=== PATIENT | male | born 1965 | race Caucasian/White ===

== ENCOUNTER 2020-08-30 08:03 | Emergency (ER) | payer OTHER ==
[~2020-08-30 08:03] MED LIST: ACIPHEX20 M1 PO; ACTOS30 MG PO; ALLEGRA ALLERG180 MG PO; ALLOPURINOL100 MG PO; ASPIRIN EC81 MG PO; AUGMENTIN 875-1 EACH PO; AZITHROMYCIN250 MG PO; CARAFATE1 GM PO; CARTIA XT120 MG PO; CATAPRES0.1 MG PO; CEFDINIR300 MG PO; CIPRO500 MG PO; CRESTOR20 MG PO; DERMACINRX5000 UNIT PO; DILAUDID2 MG PO; DULERA 200 MCG8.8 GM INH; DUONEB 2.5-0.5M1 AMP INH; DUONEB 2.5-0.5M1 AMP NEB; ELIQUIS5 MG PO; ENDOCET 10-3251 EACH PO; FENOFIBRATE160 MG PO; FLOMAX0.4 MG PO; GLUCOTROL5 MG PO; HABITROL14 MG TD; HCTZ25 MG PO; HYDROCODON-ACE1 EAC4 PO; INVOKANA300 MG PO; LEVAQUIN750 MG PO; LOPID600 MG PO; METFORMIN HCL500 MG PO; METOPROLOL SUC100 MG PO; ONDANSETRON ODT4 MG PO; ONDANSETRON ODT4 MG SL; PEPCID AC20 MG PO; PERCOCET 10/321 EACH PO; PREDNISONE 20MG20 MG PO; PREDNISONE20 MG PO; PULMICORT0.5 MG/2 M NEB; QVAR REDIHALE10.6 G1 INH; SERTRALINE HCL50 MG PO; STEGLATRO15 MG PO; TAMIFLU 75MG CA75 MG PO; VENTOLIN HFA IN18 GM INH; XARELTO10 MG PO; ZOLOFT50 MG PO
== END 2020-08-30 08:10 | disposition left against medical advice (07) ==
LOC: FER 08:03
DX: R06.02 Shortness of breath (principal); Z53.8 Procedure and treatment not carried out for other reasons

== ENCOUNTER 2020-10-07 22:53 | Emergency (ER) | payer OTHER ==
[2020-10-07 23:58] LABS: BASOPHIL 0.7 % (0-2); EOSINOPHIL 2.9 % (0-5); HCT 45.4 % (42.0-52.0); LYMPHOCYTE 27.9 % (15-48); MCH 28.5 pg (25.0-31.0); MCV 86.3 fL (78.0-100.0); MPV 10.8 fL (6.0-9.5); NEUTROPHIL 59.3 % (41-80); NRBC 0; PLT 214 K/uL (150-400); RBC 5.26 M/uL (4.70-6.00); RDW 14.3 % (11.5-14.0); WBC 8.5 K/uL (4.0-10.5)
[2020-10-08 00:08] LABS: INR 1.61 (0.9-1.2); PROTHROMBIN TIME 18.2 SECONDS (11.4-13.6)
[2020-10-08 00:15] LABS: ALBUMIN 3.4 g/dL (3.4-5.0); BILIRUBIN - TOTAL 0.4 mg/dL (0.2-1.0); GLOBULIN (CALCULATION) 3.9 g/dL; POTASSIUM 4.4 mmol/L (3.5-5.1); TOTAL PROTEIN 7.3 g/dL (6.4-8.2)
[2020-10-08 01:48] LABS: BILIRUBIN NEGATIVE (NEGATIVE); BLOOD 3+ Ery/uL (NEGATIVE); CLARITY CLEAR (CLEAR); COLOR YELLOW (YELLOW); GLUCOSE (U) 3+ mg/dL (NORMAL); LEUKOCYTES NEGATIVE Leu/uL (NEGATIVE); NITRITE NEGATIVE (NEGATIVE); PROTEIN NEGATIVE (NEGATIVE); SPECIFIC GRAVITY 1.025 (1.001-1.030); UROBILINOGEN 0.2 mg/dL (0.2-1.0)
[2020-10-08 01:55] LABS: BACTERIA TRACE; URINARY RBC TNTC
== END 2020-10-08 05:00 | disposition home or self-care (01) ==
LOC: FER 22:53
PROVIDERS: Emergency Medicine
DX: J44.1 Chronic obstructive pulmonary disease with (acute) exacerbation (principal); Z99.81 Dependence on supplemental oxygen; Z95.0 Presence of cardiac pacemaker; Z87.891 Personal history of nicotine dependence
CPT/HCPCS: 36415; 36600; 71045; 80053; 81001; 82150; 82803; 83690; 84484; 85025; 85610; 85730; 93005; J2405; J2930

== ENCOUNTER 2020-11-09 12:00 | Emergency (ER) | payer OTHER ==
[2020-11-09 13:59] LABS: BASOPHIL 0.4 % (0-2); EOSINOPHIL 0.2 % (0-5); HGB 14.5 g/dl (13.2-18.0); LYMPHOCYTE 19.3 % (15-48); MCH 28.8 pg (25.0-31.0); MCHC 34.5 g/dL (32.0-36.0); MCV 83.3 fL (78.0-100.0); MONOCYTE 7.7 % (0-12); MPV 11.2 fL (6.0-9.5); NEUTROPHIL 71.1 % (41-80); NRBC 0; PLT 227 K/uL (150-400); RBC 5.04 M/uL (4.70-6.00); RDW 14.4 % (11.5-14.0); WBC 10.5 K/uL (4.0-10.5)
[2020-11-09 14:17] LABS: BUN/CREAT RATIO (CALC) 33.7 RATIO; CREATININE 0.95 mg/dL (0.67-1.17); POTASSIUM 3.8 mmol/L (3.5-5.1)
== END 2020-11-09 16:52 | disposition home or self-care (01) ==
LOC: FER 12:00
PROVIDERS: Nurse Practitioner Family
DX: R42 Dizziness and giddiness (principal); M79.89 Other specified soft tissue disorders; T38.0X5A Adverse effect of glucocorticoids and synthetic analogues, initial encounter; E11.9 Type 2 diabetes mellitus without complications; I10 Essential (primary) hypertension; I48.91 Unspecified atrial fibrillation; J44.9 Chronic obstructive pulmonary disease, unspecified; Z86.2 Personal history of diseases of the blood and blood-forming organs and certain disorders involving the immune mechanism; Z88.5 Allergy status to narcotic agent; Z88.8 Allergy status to other drugs, medicaments and biological substances; Y92.9 Unspecified place or not applicable
CPT/HCPCS: 36415; 80048; 83880; 85025; J1200

== ENCOUNTER 2021-05-27 06:17 | Emergency (ER) | payer OTHER ==
[2021-05-27 07:03] LABS: BASOPHIL 0.4 % (0-2); EOSINOPHIL 1.9 % (0-5); HCT 46.3 % (42.0-52.0); LYMPHOCYTE 20.6 % (15-48); MCH 29.3 pg (25.0-31.0); MCHC 34.6 g/dL (32.0-36.0); MCV 84.8 fL (78.0-100.0); MPV 10.7 fL (6.0-9.5); NEUTROPHIL 68.4 % (41-80); NRBC 0; PLT 229 K/uL (150-400); RBC 5.46 M/uL (4.70-6.00); WBC 8.3 K/uL (4.0-10.5)
[2021-05-27 07:14] LABS: ALBUMIN 3.8 g/dL (3.4-5.0); BILIRUBIN - TOTAL 1.1 mg/dL (0.2-1.0); BUN/CREAT RATIO (CALC) 26.1 RATIO; CREATININE 0.88 mg/dL (0.67-1.17); GLOBULIN (CALCULATION) 3.7 g/dL; POTASSIUM 3.7 mmol/L (3.5-5.1); TOTAL PROTEIN 7.5 g/dL (6.4-8.2)
[2021-05-27 08:29] LABS: BILIRUBIN 1+ mg/dL (NEGATIVE); BLOOD NEGATIVE Ery/uL (NEGATIVE); CLARITY CLEAR (CLEAR); COLOR YELLOW (YELLOW); GLUCOSE (U) 3+ mg/dL (NORMAL); LEUKOCYTES NEGATIVE Leu/uL (NEGATIVE); NITRITE NEGATIVE (NEGATIVE); PROTEIN NEGATIVE (NEGATIVE); UROBILINOGEN 0.2 mg/dL (0.2-1.0)
[2021-05-27] MEDS ORDERED: PRILOSEC20 MG PO ×2 (09:31→09:32)
== END 2021-05-27 10:01 | disposition home or self-care (01) ==
LOC: FER 06:17
PROVIDERS: Emergency Medicine
DX: K29.70 Gastritis, unspecified, without bleeding (principal); I10 Essential (primary) hypertension; E11.9 Type 2 diabetes mellitus without complications; J44.9 Chronic obstructive pulmonary disease, unspecified; Z87.891 Personal history of nicotine dependence; Z88.5 Allergy status to narcotic agent; Z88.6 Allergy status to analgesic agent; Z88.8 Allergy status to other drugs, medicaments and biological substances
CPT/HCPCS: 36415; 71045; 80053; 81003; 83690; 84478; 84484; 85025; 93005; J1170; J2405; J7030; Q9967

== ENCOUNTER 2021-06-19 14:48 | Inpatient (IN) | payer OTHER ==
[~2021-06-19] VITALS: Ht 175.3 cm; Wt 145.1 kg
[~2021-06-19 14:48] MED LIST changes: +PRILOSEC20 MG PO
[2021-06-19 15:38] LABS: BASOPHIL 0.3 % (0-2); EOSINOPHIL 0 % (0-5); HCT 48.4 % (42.0-52.0); HGB 16.3 g/dl (13.2-18.0); LYMPHOCYTE 5.4 % (15-48); MCH 28.7 pg (25.0-31.0); MCHC 33.7 g/dL (32.0-36.0); MCV 85.2 fL (78.0-100.0); MONOCYTE 5.7 % (0-12); MPV 10.5 fL (6.0-9.5); NEUTROPHIL 87.2 % (41-80); NRBC 0; PLT 249 K/uL (150-400); RBC 5.68 M/uL (4.70-6.00); RDW 14.7 % (11.5-14.0); WBC 14.6 K/uL (4.0-10.5)
[2021-06-19 16:08] LABS: ALBUMIN 4.1 g/dL (3.4-5.0); BILIRUBIN - TOTAL 0.8 mg/dL (0.2-1.0); BUN/CREAT RATIO (CALC) 39.1 RATIO; CREATININE 0.92 mg/dL (0.67-1.17); GLOBULIN (CALCULATION) 3.8 g/dL; POTASSIUM 4.2 mmol/L (3.5-5.1); TOTAL PROTEIN 7.9 g/dL (6.4-8.2)
[2021-06-19 19:45] LABS: BILIRUBIN 1+ mg/dL (NEGATIVE); BLOOD NEGATIVE Ery/uL (NEGATIVE); CLARITY CLEAR (CLEAR); COLOR YELLOW (YELLOW); GLUCOSE (U) 3+ mg/dL (NORMAL); LEUKOCYTES NEGATIVE Leu/uL (NEGATIVE); NITRITE NEGATIVE (NEGATIVE); PROTEIN NEGATIVE (NEGATIVE); SPECIFIC GRAVITY 1.025 (1.001-1.030); UROBILINOGEN 0.2 mg/dL (0.2-1.0); pH 5.5 (5.0-9.0)
[2021-06-19 19:52] LABS: BACTERIA TRACE
[2021-06-19] MEDS ORDERED: SINGULAIR10 MG PO (23:06)
[2021-06-19] MEDS ORDERED: 24HOUR ALLERGY10 MG PO (23:07)
[2021-06-19 23:08] LABS: BUN/CREAT RATIO (CALC) 39.1 RATIO; CREATININE 0.87 mg/dL (0.67-1.17)
[2021-06-19] MEDS ORDERED: DALIRESP500 MCG PO (23:08)
[2021-06-19] MEDS ORDERED: AZITHROMYCIN250 MG PO (23:08)
[2021-06-19] MEDS ORDERED: GLUCOTROL10 MG PO (23:08)
[2021-06-20 06:46] LABS: BASOPHIL 0.3 % (0-2); EOSINOPHIL 0 % (0-5); HGB 15.8 g/dl (13.2-18.0); LYMPHOCYTE 7.3 % (15-48); MCHC 33.6 g/dL (32.0-36.0); MCV 86.4 fL (78.0-100.0); MONOCYTE 6.8 % (0-12); MPV 10.3 fL (6.0-9.5); NEUTROPHIL 83.6 % (41-80); NRBC 0; PLT 217 K/uL (150-400); RBC 5.44 M/uL (4.70-6.00); RDW 14.6 % (11.5-14.0); WBC 12.6 K/uL (4.0-10.5)
[2021-06-20 07:07] LABS: ALBUMIN 3.7 g/dL (3.4-5.0); BILIRUBIN - TOTAL 0.6 mg/dL (0.2-1.0); BUN/CREAT RATIO (CALC) 34.1 RATIO; CREATININE 0.82 mg/dL (0.67-1.17); GLOBULIN (CALCULATION) 3.7 g/dL; TOTAL PROTEIN 7.4 g/dL (6.4-8.2)
--- NOTE | 2021-06-20 14:07 | NUR ---
PT. RESIDES WITH HIS SPOUSE. HE IS ON 2 L OF 02 AT NIGHT. HE ALSO TAKES DUONEBS EVERY FOUR HOURS. PT. IS DISABLED DUE TO ISSUES WITH HIS BACK. PT. NO LONGER DRINKS ALCOHOL. HE WILL D/C HOME WITH HIS SPOUSE.
[2021-06-22 06:47] LABS: BASOPHIL 0.6 % (0-2); EOSINOPHIL 2.4 % (0-5); HCT 39.2 % (42.0-52.0); HGB 13.4 g/dl (13.2-18.0); LYMPHOCYTE 23.2 % (15-48); MCH 29.3 pg (25.0-31.0); MCHC 34.2 g/dL (32.0-36.0); MCV 85.6 fL (78.0-100.0); MONOCYTE 6.4 % (0-12); MPV 10.1 fL (6.0-9.5); NEUTROPHIL 66.2 % (41-80); NRBC 0; PLT 149 K/uL (150-400); RBC 4.58 M/uL (4.70-6.00); RDW 13.8 % (11.5-14.0)
[2021-06-22 07:09] LABS: BILIRUBIN - TOTAL 0.5 mg/dL (0.2-1.0); BUN/CREAT RATIO (CALC) 20.3 RATIO; CREATININE 0.64 mg/dL (0.67-1.17); GLOBULIN (CALCULATION) 3.2 g/dL; POTASSIUM 3.3 mmol/L (3.5-5.1); TOTAL PROTEIN 6.2 g/dL (6.4-8.2)
[2021-06-22] MEDS ORDERED: DILAUDID2 MG PO (13:15)
== END 2021-06-22 15:52 | disposition home or self-care (01) | DRG 439 ==
LOC: FER 14:48 → FMS 19:32
PROVIDERS: Allergy & Immunology Allergy; Nurse Practitioner; Physician Assistant; ADMIT Hospitalist
DX: K85.90 Acute pancreatitis without necrosis or infection, unspecified (principal); Z68.42 Body mass index [BMI] 45.0-49.9, adult; Z20.822 Contact with and (suspected) exposure to COVID-19; I10 Essential (primary) hypertension; I48.0 Paroxysmal atrial fibrillation; E66.01 Morbid (severe) obesity due to excess calories; E11.9 Type 2 diabetes mellitus without complications; D45 Polycythemia vera; M10.9 Gout, unspecified; K21.9 Gastro-esophageal reflux disease without esophagitis; F41.1 Generalized anxiety disorder; Z79.01 Long term (current) use of anticoagulants; Z86.16 Personal history of COVID-19; Z98.890 Other specified postprocedural states; Z82.49 Family history of ischemic heart disease and other diseases of the circulatory system; Z87.891 Personal history of nicotine dependence; Z88.5 Allergy status to narcotic agent; Z88.8 Allergy status to other drugs, medicaments and biological substances
CPT/HCPCS: 36415; 80048; 80053; 80061; 81001; 83690; 83735; 84484; 85025; 93005; 94010; 94640; J1170; J2405; J7030; J7120; U0002

== ENCOUNTER 2021-11-01 19:14 | Emergency (ER) | payer OTHER ==
[~2021-11-01 19:14] MED LIST changes: +24HOUR ALLERGY10 MG PO; +DALIRESP500 MCG PO; +GLUCOTROL10 MG PO; +SINGULAIR10 MG PO
[2021-11-01 19:45] LABS: BASOPHIL 0.6 % (0-2); EOSINOPHIL 1.4 % (0-5); HCT 40.1 % (42.0-52.0); HGB 14.1 g/dl (13.2-18.0); LYMPHOCYTE 29.9 % (15-48); MCH 28.9 pg (25.0-31.0); MCHC 35.2 g/dL (32.0-36.0); MCV 82.2 fL (78.0-100.0); MONOCYTE 7.1 % (0-12); MPV 10.8 fL (6.0-9.5); NEUTROPHIL 59.4 % (41-80); NRBC 0; PLT 207 K/uL (150-400); RBC 4.88 M/uL (4.70-6.00); RDW 13.9 % (11.5-14.0); WBC 7.7 K/uL (4.0-10.5)
[2021-11-01 19:55] LABS: INR 0.97 (0.9-1.2); PROTHROMBIN TIME 12.3 SECONDS (11.8-13.4); PTT 28.8 SECONDS (24.4-34.7)
[2021-11-01 20:02] LABS: ALBUMIN 3.7 g/dL (3.4-5.0); BILIRUBIN - TOTAL 0.4 mg/dL (0.2-1.0); BUN/CREAT RATIO (CALC) 21.1 RATIO; CREATININE 0.9 mg/dL (0.67-1.17); GLOBULIN (CALCULATION) 3.4 g/dL; POTASSIUM 3.8 mmol/L (3.5-5.1); TOTAL PROTEIN 7.1 g/dL (6.4-8.2)
[2021-11-01 20:37] LABS: MAGNESIUM 1.8 mg/dL (1.8-2.4); PHOSPHORUS 3.5 mg/dL (2.6-4.7)
[2021-11-01 22:28] LABS: BILIRUBIN NEGATIVE (NEGATIVE); BLOOD NEGATIVE Ery/uL (NEGATIVE); CLARITY CLEAR (CLEAR); COLOR YELLOW (YELLOW); GLUCOSE (U) 1+ mg/dL (NORMAL); LEUKOCYTES NEGATIVE Leu/uL (NEGATIVE); NITRITE NEGATIVE (NEGATIVE); PROTEIN NEGATIVE (NEGATIVE); SPECIFIC GRAVITY >=1.030 (1.001-1.030); UROBILINOGEN 0.2 mg/dL (0.2-1.0); pH 5.5 (5.0-9.0)
[2021-11-01 22:34] LABS: AMPHETAMINES NEGATIVE (NEGATIVE); BARBITURATES NEGATIVE (NEGATIVE); ECSTASY (MDMA) NEGATIVE (NEGATIVE); MARIJUANA (THC) NEGATIVE (NEGATIVE); METHADONE NEGATIVE (NEGATIVE); OPIATES NEGATIVE (NEGATIVE); OXYCODONE POSITIVE (NEGATIVE)
== END 2021-11-02 01:15 | disposition home or self-care (01) ==
LOC: FER 19:14
PROVIDERS: Emergency Medicine
DX: G45.9 Transient cerebral ischemic attack, unspecified (principal); I10 Essential (primary) hypertension; J44.9 Chronic obstructive pulmonary disease, unspecified; I48.91 Unspecified atrial fibrillation; Z88.5 Allergy status to narcotic agent; Z88.6 Allergy status to analgesic agent; Z88.8 Allergy status to other drugs, medicaments and biological substances
CPT/HCPCS: 36415; 70450; 71045; 80053; 80305; 81003; 83735; 84100; 84443; 84484; 85025; 85610; 85730; 93005; 93971

== ENCOUNTER 2022-01-17 14:21 | Emergency (ER) | payer OTHER ==
[~2022-01-17 14:21] MED LIST changes: +ATARAX25 MG PO; +INSULIN GL100 UNIT/1 SC; +LANTUS100 UNIT/1 SC; +PERCOCET 10-321 EACH PO
== END 2022-01-17 17:39 | disposition left against medical advice (07) ==
LOC: FER 14:21
DX: Z53.21 Procedure and treatment not carried out due to patient leaving prior to being seen by health care provider (principal)

== ENCOUNTER 2022-01-20 18:23 | Emergency (ER) | payer OTHER | END 2022-01-20 20:58 | disposition home or self-care (01) | LOC: FER 18:23 | DX: M54.41 Lumbago with sciatica, right side (principal); E11.9 Type 2 diabetes mellitus without complications; I10 Essential (primary) hypertension; J44.9 Chronic obstructive pulmonary disease, unspecified; I25.10 Atherosclerotic heart disease of native coronary artery without angina pectoris; I48.91 Unspecified atrial fibrillation; E78.5 Hyperlipidemia, unspecified; Z88.5 Allergy status to narcotic agent; Z88.8 Allergy status to other drugs, medicaments and biological substances; Z79.84 Long term (current) use of oral hypoglycemic drugs; Z79.4 Long term (current) use of insulin; Z79.01 Long term (current) use of anticoagulants; Z79.899 Other long term (current) drug therapy | CPT/HCPCS: J1170 ==

== ENCOUNTER 2022-05-11 00:51 | Emergency (ER) | payer OTHER ==
[2022-05-11 01:48] LABS: BASOPHIL 0.7 % (0-2); EOSINOPHIL 4.2 % (0-5); HCT 37.8 % (42.0-52.0); HGB 12.9 g/dl (13.2-18.0); LYMPHOCYTE 25.4 % (15-48); MCH 28.4 pg (25.0-31.0); MCHC 34.1 g/dL (32.0-36.0); MCV 83.1 fL (78.0-100.0); MONOCYTE 6.1 % (0-12); MPV 10.9 fL (6.0-9.5); NEUTROPHIL 62.4 % (41-80); NRBC 0; PLT 198 K/uL (150-400); RBC 4.55 M/uL (4.70-6.00); RDW 14.4 % (11.5-14.0); WBC 5.8 K/uL (4.0-10.5)
[2022-05-11 02:10] LABS: ALBUMIN 3.6 g/dL (3.4-5.0); BILIRUBIN - TOTAL 0.4 mg/dL (0.2-1.0); CREATININE 0.96 mg/dL (0.67-1.17); GLOBULIN (CALCULATION) 3.6 g/dL; POTASSIUM 3.6 mmol/L (3.5-5.1); TOTAL PROTEIN 7.2 g/dL (6.4-8.2)
[2022-05-11 02:36] LABS: CORONAVIRUS 2019 SARS-COV-2 NEGATIVE (NEGATIVE); INFLUENZA A NAA NEGATIVE (NEGATIVE)
[2022-05-11] MEDS ORDERED: VENTOLIN HFA IN18 GM INH (03:37)
[2022-05-11] MEDS ORDERED: AUGMENTIN 500-1 EACH PO (03:37)
== END 2022-05-11 04:00 | disposition home or self-care (01) ==
LOC: FER 00:51
PROVIDERS: Emergency Medicine
DX: J44.1 Chronic obstructive pulmonary disease with (acute) exacerbation (principal); E11.9 Type 2 diabetes mellitus without complications; I10 Essential (primary) hypertension; Z20.822 Contact with and (suspected) exposure to COVID-19; Z87.891 Personal history of nicotine dependence; Z88.5 Allergy status to narcotic agent; Z88.8 Allergy status to other drugs, medicaments and biological substances; Z79.01 Long term (current) use of anticoagulants; Z79.82 Long term (current) use of aspirin; Z79.899 Other long term (current) drug therapy; Z79.4 Long term (current) use of insulin; Z79.84 Long term (current) use of oral hypoglycemic drugs
CPT/HCPCS: 36415; 71045; 80053; 82140; 82150; 83605; 83690; 83880; 85025; 85379; 94640; 94664; J1100; U0002

== ENCOUNTER 2022-05-13 03:00 | Inpatient (IN) | payer OTHER ==
[~2022-05-13] VITALS: Ht 175.3 cm; Wt 162.0 kg
[~2022-05-13 03:00] MED LIST changes: +AUGMENTIN 500-1 EACH PO
[2022-05-13 03:47] LABS: BASOPHIL 0.9 % (0-2); EOSINOPHIL 3.5 % (0-5); HCT 36.7 % (42.0-52.0); HGB 12.4 g/dl (13.2-18.0); LYMPHOCYTE 33.8 % (15-48); MCH 28.2 pg (25.0-31.0); MCHC 33.8 g/dL (32.0-36.0); MCV 83.6 fL (78.0-100.0); MONOCYTE 6.3 % (0-12); MPV 11.3 fL (6.0-9.5); NRBC 0; PLT 180 K/uL (150-400); RBC 4.39 M/uL (4.70-6.00); RDW 14.4 % (11.5-14.0); WBC 5.4 K/uL (4.0-10.5)
[2022-05-13 04:02] LABS: ALBUMIN 3.7 g/dL (3.4-5.0); ALKALINE PHOSHATASE 40 U/L (46-116); ALT 40 U/L (16-63); AST 28 U/L (15-37); BILIRUBIN - TOTAL 0.4 mg/dL (0.2-1.0); BUN 22 mg/dL (7-18); BUN/CREAT RATIO (CALC) 20.2 RATIO; C-REACTIVE PROTEIN <0.20 mg/dL (<=0.90); CHLORIDE 101 mmol/L (98-107); CO2 (BICARBONATE) 27 mmol/L (21-32); CREATININE 1.09 mg/dL (0.67-1.17); GLOBULIN (CALCULATION) 3.5 g/dL; GLUCOSE 240 mg/dL (74-106); POTASSIUM 3.3 mmol/L (3.5-5.1); TOTAL PROTEIN 7.2 g/dL (6.4-8.2)
[2022-05-13 04:06] LABS: LACTIC ACID 4.9 mmol/L (0.4-1.9)
[2022-05-13 06:15] LABS: CORONAVIRUS 2019 SARS-COV-2 NEGATIVE (NEGATIVE); INFLUENZA A NAA NEGATIVE (NEGATIVE)
[2022-05-13 07:13] LABS: RETICULOCYTE COUNT 2.8 % (1.0-2.0)
[2022-05-13 07:16] LABS: IRON % SATURATION 7.5 %SAT (20-50)
[2022-05-13] MEDS ORDERED: STOOL SOFTENER100 MG PO (10:19)
[2022-05-13] MEDS ORDERED: UROCIT-K10 MEQ PO (10:21)
[2022-05-13] MEDS ORDERED: CARDIZEM CD240 MG PO (10:23)
[2022-05-13] MEDS ORDERED: LASIX40 MG PO (10:24)
[2022-05-13] MEDS ORDERED: ASPIRIN EC81 MG PO (10:24)
[2022-05-13 17:03] LABS: ALBUMIN 3.6 g/dL (3.4-5.0); ALKALINE PHOSHATASE 46 U/L (46-116); ALT 36 U/L (16-63); AST 22 U/L (15-37); BILIRUBIN - TOTAL 0.4 mg/dL (0.2-1.0); GLOBULIN (CALCULATION) 3.6 g/dL; TOTAL PROTEIN 7.2 g/dL (6.4-8.2)
[2022-05-14 05:50] LABS: HCT 34.3 % (42.0-52.0); HGB 11.6 g/dl (13.2-18.0); MCHC 33.8 g/dL (32.0-36.0); MCV 82.9 fL (78.0-100.0); MPV 10.3 fL (6.0-9.5); RBC 4.14 M/uL (4.70-6.00); RDW 13.8 % (11.5-14.0); WBC 8.5 K/uL (4.0-10.5)
[2022-05-14 06:26] LABS: BUN/CREAT RATIO (CALC) 25.3 RATIO; CREATININE 0.79 mg/dL (0.67-1.17); POTASSIUM 4.5 mmol/L (3.5-5.1)
[2022-05-14 12:15] LABS: ALBUMIN 3.4 g/dL (3.4-5.0); BILIRUBIN - DIRECT 0.1 mg/dL (0.00-0.20); BILIRUBIN - TOTAL 0.5 mg/dL (0.2-1.0); GLOBULIN (CALCULATION) 3.2 g/dL; TOTAL PROTEIN 6.6 g/dL (6.4-8.2)
[2022-05-14 14:09] LABS: BILIRUBIN NEGATIVE (NEGATIVE); BLOOD 3+ Ery/uL (NEGATIVE); CLARITY CLEAR (CLEAR); COLOR YELLOW (YELLOW); GLUCOSE (U) 3+ mg/dL (NORMAL); LEUKOCYTES NEGATIVE Leu/uL (NEGATIVE); NITRITE NEGATIVE (NEGATIVE); PROTEIN NEGATIVE (NEGATIVE); UROBILINOGEN 0.2 mg/dL (0.2-1.0)
--- NOTE | 2022-05-14 14:21 | NUR ---
PT REFUSED LR IV FLUIDS INFORMED DR. MENJIVAR. NO NEW ORDERS
--- NOTE | 2022-05-15 02:54 | NUR ---
patient called for resp tx stating soa, resp notfied need new order for tx, inpatient care manager rn aware neew order recieved and noted. When resp tech attempted to give scheduled resp tx, patient became upset and threw neb across room, stating he would need to go to another hospital he can't breath. Nurse attempted to calm patient and discuss antianxiety medication to help with soa. He stated i want to leave get my AMA papers. Nurse then left room, patient called nurses station and requested nurse return to room, He did agree to anti-anxiety medication. Ativan 1 mg given ivsp, remained with patient, decrease anxiety noted.x-ray in room at this time for stat chesty x-ray.
[2022-05-15 03:11] LABS: HCT 39.3 % (42.0-52.0); HGB 13.1 g/dl (13.2-18.0); MCH 27.9 pg (25.0-31.0); MCHC 33.3 g/dL (32.0-36.0); MCV 83.6 fL (78.0-100.0); MPV 10.8 fL (6.0-9.5); RBC 4.7 M/uL (4.70-6.00); WBC 7.4 K/uL (4.0-10.5)
[2022-05-15 03:34] LABS: ALBUMIN 3.8 g/dL (3.4-5.0); ALKALINE PHOSHATASE 37 U/L (46-116); ALT 34 U/L (16-63); AST 17 U/L (15-37); BILIRUBIN - TOTAL 0.6 mg/dL (0.2-1.0); BUN 30 mg/dL (7-18); BUN/CREAT RATIO (CALC) 31.9 RATIO; CHLORIDE 99 mmol/L (98-107); CO2 (BICARBONATE) 27 mmol/L (21-32); CREATININE 0.94 mg/dL (0.67-1.17); GLOBULIN (CALCULATION) 3.6 g/dL; GLUCOSE 381 mg/dL (74-106); POTASSIUM 4.3 mmol/L (3.5-5.1); TOTAL PROTEIN 7.4 g/dL (6.4-8.2)
[2022-05-15 03:35] LABS: C-REACTIVE PROTEIN < 0.20 mg/dL (<=0.90)
[2022-05-15] MEDS ORDERED: ATIVAN0.5 MG PO (12:32)
[2022-05-15] MEDS ORDERED: IPRATROPIU0.2 MG/1 M NEB (12:32)
[2022-05-15] MEDS ORDERED: XOPENEX (11.25 MG/3 NEB (12:32)
[2022-05-15] MEDS ORDERED: PREDNISONE 20MG20 MG PO (12:32)
[2022-05-15] MEDS ORDERED: NARCAN4 MG (12:32)
--- NOTE | 2022-05-15 13:32 | NUR ---
05/15/22 Mr. Morley lives at home with his spouse. He has a neb, 02@ 2 L, portable tank, rw, cane, and wc. Mr. Morley stated that he mood was "lousy". He stated that the doctors told him they did not know where counseling services were available. Mr. Morley was asked if he is having suicidal ideations. He said, "I wouldn't tell you if I was". He accepted a listing of counseling services and a crisis hotline #. Mr. Morley was informed that [facility] have clinic in [facility]. A report was given to Dr. Sylvester.
--- NOTE | 2022-05-15 13:34 | NUR ---
PT D/C TO HOME WITH PAPER WORK. IV REMOVED AND DSG APPLIED. TELY REMOVED. PT LEFT WITH FAMILY IN GOOD CONDITION. PT STATED HE WANTS TO MAKE HIS OWN DR. APPOINTMENTS. PT LEFT BY AUTO IN GOOD CONDITION
== END 2022-05-15 13:30 | disposition home or self-care (01) | DRG 189 ==
LOC: FER 03:00 → FMS 05:27
PROVIDERS: Emergency Medicine; Family Medicine; Nurse Practitioner Acute Care; ADMIT Internal Medicine
DX: J96.01 Acute respiratory failure with hypoxia (principal); J44.1 Chronic obstructive pulmonary disease with (acute) exacerbation; N17.9 Acute kidney failure, unspecified; I13.0 Hypertensive heart and chronic kidney disease with heart failure and stage 1 through stage 4 chronic kidney disease, or unspecified chronic kidney disease; I48.0 Paroxysmal atrial fibrillation; E66.01 Morbid (severe) obesity due to excess calories; K76.0 Fatty (change of) liver, not elsewhere classified; N20.0 Calculus of kidney; Z20.822 Contact with and (suspected) exposure to COVID-19; G47.33 Obstructive sleep apnea (adult) (pediatric); E11.9 Type 2 diabetes mellitus without complications; K21.9 Gastro-esophageal reflux disease without esophagitis; F17.210 Nicotine dependence, cigarettes, uncomplicated; I50.9 Heart failure, unspecified; E87.6 Hypokalemia; N18.2 Chronic kidney disease, stage 2 (mild); D63.1 Anemia in chronic kidney disease; I25.10 Atherosclerotic heart disease of native coronary artery without angina pectoris; Z88.5 Allergy status to narcotic agent; Z88.8 Allergy status to other drugs, medicaments and biological substances; Z28.310 Unvaccinated for COVID-19
CPT/HCPCS: 36415; 71045; 76705; 80048; 80053; 80076; 81001; 82728; 83540; 83550; 83605; 83690; 83880; 84145; 84439; 84443; 84481; 84484; 85025; 86140; 87040; 93005; 94010; 94640; 94664; 94760; 97161; 97166; J0692; J1170; J1815; J1940; J2060; J2405; J2920; J2930; J3475; J7050; J7120; U0002